=== PATIENT | female | born 1995 | race Caucasian/White ===

== ENCOUNTER 2017-09-22 08:54 | Outpatient (CLI) | payer BC ==
[~2017-09-22] VITALS: Ht 154.9 cm; Wt 70.0 kg
[2017-09-22 09:18] LABS: BASOPHILS # (AUTO) 0.01 x10^3/uL (0-0.1); BASOPHILS % (AUTO) 0 % (0-1); EOSINOPHILS # (AUTO) 0.26 x10^3/uL (0-0.4); EOSINOPHILS % (AUTO) 2 % (1-7); LYMPHOCYTES # (AUTO) 1.32 x10^3/uL (1-3.4); LYMPHOCYTES % (AUTO) 10 % (22-44); MD NO; MEAN CORPUSCULAR HEMOGLOBIN 32.5 pg (27.0-34.8); MEAN CORPUSCULAR HGB CONC 34.1 g/dL (32.4-35.8); MEAN CORPUSCULAR VOLUME 95.3 fL (80-100); MEAN PLATELET VOLUME 9.2 fL (7.4-10.4); MONOCYTES # (AUTO) 0.83 x10^3/uL (0.2-0.8); MONOCYTES % (AUTO) 6 % (2-9); NEUTROPHILS # (AUTO) 10.74 x10^3/uL (1.8-6.8); NEUTROPHILS % (AUTO) 82 % (42-75); PLATELET COUNT 157 x10^3/uL (130-400); RED CELL DISTRIBUTION WIDTH 13.6 % (9.6-15.2)
[2017-09-22 09:33] LABS: ALANINE AMINOTRANSFERASE 24 U/L (12-78); ANION GAP 8 mmol/L (5-15); CALCIUM 9.2 mg/dL (8.5-10.1); CHLORIDE 109 mmol/L (98-107); CREATININE 0.84 mg/dL (0.55-1.02)
[2017-09-22 09:35] LABS: MICROSCOPIC INDICATED
[2017-09-22 09:38] LABS: ALKALINE PHOSPHATASE 148 U/L (45-117); BILIRUBIN, DIRECT 0.1 mg/dL (0.1-0.2); BILIRUBIN,TOTAL 0.5 mg/dL (0.2-1.0); TOTAL PROTEIN 6.9 g/dL (6.4-8.2)
[2017-09-22] MEDS ORDERED: PLEASE ENTER HEIGHT AND WEIGHT MC SCH (10:00)
[2017-09-22] MEDS ORDERED: LACTATED RINGERS 1,000 ML IVBOLUS ONE (10:00)
[2017-09-22] MEDS ORDERED: ONDANSETRON 2MG/ML, 2ML IVPush PRN (10:00)
[2017-09-22] MEDS ORDERED: LACTATED RINGERS 1,000 ML IV ONE (10:00)
[2017-09-22] MEDS ORDERED: ONDANSETRON 2MG/ML, 2ML ONE (10:02)
[2017-09-22 10:33] VITALS: BP 125/78
== END 2017-09-22 13:05 | disposition home or self-care (01) ==
LOC: LDOP 08:54
PROVIDERS: ATTEND Obstetrics & Gynecology
DX: O26.893 Other specified pregnancy related conditions, third trimester (principal); R10.11 Right upper quadrant pain; Z3A.38 38 weeks gestation of pregnancy
CPT/HCPCS: 36415; 59025; 76700; 80053; 81001; 82248; 84550; 85025; 87086; 96360; 96361; 99201; J2405; J7120; G0463

== ENCOUNTER 2017-10-07 02:16 | Inpatient (IN) | payer BC ==
[~2017-10-07] VITALS: Ht 154.9 cm; Wt 73.0 kg
[2017-10-07] MEDS ORDERED: OXYTOCIN 30U/ 0.9% NaCL 500ML 500 ML IV ONE (02:32)
[2017-10-07] MEDS: D5%-LACTATED RINGERS 1,000 ML IV SCH ×2 (02:32→10:32)
[2017-10-07] MEDS ORDERED: FENTANYL/BUPIV./NS/PF 250 ML EPIDCONT SCH ×2 (02:43→04:14)
[2017-10-07 02:49] LABS: BASOPHILS # (AUTO) 0.15 x10^3/uL (0-0.1); BASOPHILS % (AUTO) 1 % (0-1); EOSINOPHILS # (AUTO) 0.13 x10^3/uL (0-0.4); EOSINOPHILS % (AUTO) 1 % (1-7); LYMPHOCYTES # (AUTO) 1.72 x10^3/uL (1-3.4); LYMPHOCYTES % (AUTO) 15 % (22-44); MD NO; MEAN CORPUSCULAR HEMOGLOBIN 33.5 pg (27.0-34.8); MEAN CORPUSCULAR VOLUME 95.8 fL (80-100); MEAN PLATELET VOLUME 10.6 fL (7.4-10.4); MONOCYTES # (AUTO) 1.23 x10^3/uL (0.2-0.8); MONOCYTES % (AUTO) 11 % (2-9); NEUTROPHILS # (AUTO) 8.52 x10^3/uL (1.8-6.8); NEUTROPHILS % (AUTO) 72 % (42-75); PLATELET COUNT 139 x10^3/uL (130-400); RED BLOOD COUNT 4.17 x10^6/uL (3.82-5.3); RED CELL DISTRIBUTION WIDTH 13.3 % (9.6-15.2)
[2017-10-07] MEDS ORDERED: NEWBORN KIT ONE (02:55)
[2017-10-07] MEDS ORDERED: OXYTOCIN 30U/ 0.9% NaCL 500ML 500 ML ONE (02:55)
[2017-10-07] MEDS ORDERED: MISOPROSTOL 200 MCG TABLET ONE (02:56)
[2017-10-07] MEDS ORDERED: LIDOCAINE/PF 1%, 30ML ONE (02:56)
[2017-10-07] MEDS ORDERED: CALCIUM CARBONATE 500 MG TAB.CHEW PO PRN ×2 (03:00→12:00)
[2017-10-07] MEDS ORDERED: ONDANSETRON 2MG/ML, 2ML IVPush PRN ×2 (03:00→04:30)
[2017-10-07] MEDS ORDERED: FENTANYL PF 100 MCG/2ML IVPush PRN (03:00)
[2017-10-07] MEDS ORDERED: TERBUTALINE 1 MG/ML, 1ML IVPush PRN (03:00)
[2017-10-07] MEDS ORDERED: FENTANYL PF 100 MCG/2ML IV PRN (03:00)
[2017-10-07] MEDS ORDERED: METOCLOPRAMIDE 5 MG/ML, 2ML IVPush PRN (03:00)
[2017-10-07 03:12] VITALS: BP 131/71
[2017-10-07] MEDS ORDERED: FENTANYL PF 100 MCG/2ML ONE (03:13)
[2017-10-07] MEDS ORDERED: FENTANYL PF 500 MCG, BUPIVACAINE/PF 0.5%, 30ML 62.5 ML in SODIUM CHLORIDE 0.9% 177.5 ML EPIDCONT SCH (03:30)
[2017-10-07] MEDS ORDERED: BUPIVACAINE 0.25% ONE (03:34)
[2017-10-07] MEDS: LACTATED RINGERS 1,000 ML IV SCH ×4 (03:45→14:26)
[2017-10-07] MEDS ORDERED: EPHEDRINE 50 MG/ML, 1ML IVPush PRN (04:30)
[2017-10-07] MEDS ORDERED: LACTATED RINGERS 1,000 ML IVBOLUS PRN (04:30)
[2017-10-07] MEDS ORDERED: DIPHENHYDRAMINE 50 MG/ML, 1ML IVPush PRN (04:30)
[2017-10-07] MEDS ORDERED: NALOXONE 0.4 MG/ML, 1ML IVPush PRN (04:30)
[2017-10-07] MEDS ORDERED: ACETAMINOPHEN 325 MG TABLET ONE (08:08)
[2017-10-07] MEDS ORDERED: AMPICILLIN 2 GM in SODIUM CHLORIDE 0.9% 100 ML IV ONE (08:30)
[2017-10-07] MEDS ORDERED: ACETAMINOPHEN 325 MG TABLET PO PRN ×4 (08:30→12:00)
[2017-10-07] MEDS ORDERED: OXYTOCIN 30U/ 0.9% NaCL 500ML 500 ML IV PRN (10:37)
[2017-10-07] MEDS ORDERED: ONDANSETRON 2MG/ML, 2ML IV PRN (12:00)
[2017-10-07] MEDS ORDERED: OXYcodone/APAP 5/325MG TABLET PO PRN ×2 (12:00)
[2017-10-07] MEDS ORDERED: MEASLES,MUMPS&RUBELLA VACC/PF 0.5 ML SQ PRN (12:00)
[2017-10-07] MEDS ORDERED: MAGNESIUM HYDROXIDE 8%, 30ML UDC PO PRN (12:00)
[2017-10-07] MEDS ORDERED: MISOPROSTOL 200 MCG TABLET PR PRN (12:00)
[2017-10-07] MEDS ORDERED: DIPH,PERTUSS(ACELL),TET VAC/PF NC IM-VACC PRN (12:00)
[2017-10-07] MEDS ORDERED: RHOGAM FROM BLOOD BANK 1 NOTE EA IM/IV ONE (12:00)
[2017-10-07] MEDS ORDERED: IBUPROFEN 600 MG TABLET ONE (12:34)
[2017-10-07] MEDS: IBUPROFEN 600 MG TABLET PO PRN ×2 (12:37→18:37)
[2017-10-07] MEDS: AMPICILLIN 2 GM in SODIUM CHLORIDE 0.9% 100 ML IV SCH ×2 (14:15→20:00)
[2017-10-07 15:15] VITALS: BP 92/69
[2017-10-07] MEDS: OXYTOCIN 30U/ 0.9% NaCL 500ML 500 ML IV SCH ×2 (15:46→21:34)
[2017-10-07 18:20] VITALS: BP 120/77
[2017-10-07 19:40] LABS: MEAN CORPUSCULAR HEMOGLOBIN 33.4 pg (27.0-34.8); MEAN CORPUSCULAR HGB CONC 34.8 g/dL (32.4-35.8); MEAN CORPUSCULAR VOLUME 96.1 fL (80-100); MEAN PLATELET VOLUME 10.1 fL (7.4-10.4); PLATELET COUNT 118 x10^3/uL (130-400); RED BLOOD COUNT 3.86 x10^6/uL (3.82-5.3); RED CELL DISTRIBUTION WIDTH 13.9 % (9.6-15.2)
[2017-10-07 19:41] LABS: MD YES
[2017-10-07 19:43] LABS: BAND#(MANUAL) 9.43 x10^3/uL; BANDS%(MANUAL) 29 % (0-7); LYMPH#(MANUAL) 0.65 x10^3/uL (1-3.4); LYMPHS% (MANUAL) 2 % (22-44); METAMYELOCYTES# (MANUAL) 0.33 x10^3/uL (0-0); METAMYELOCYTES% (MANUAL) 1 % (0-1); MONOS% (MANUAL) 4 % (2-9); SEGS% (MANUAL) 64 % (42-75)
[2017-10-07 19:48] LABS: POLYCHROMASIA 1+
[2017-10-07 19:49] LABS: <PLATELET ESTIMATE> DECREASED; LARGE PLATELETS 1+
[2017-10-07 19:51] LABS: TOXIC GRAN 1+
[2017-10-07 20:00] VITALS: BP 106/67
[2017-10-08 00:30] VITALS: BP 105/65
[2017-10-08] MEDS: IBUPROFEN 600 MG TABLET PO PRN ×4 (00:44→19:46)
[2017-10-08] MEDS: AMPICILLIN 2 GM in SODIUM CHLORIDE 0.9% 100 ML IV SCH ×4 (02:25→19:47)
[2017-10-08 05:20] LABS: MEAN CORPUSCULAR HEMOGLOBIN 33.3 pg (27.0-34.8); MEAN CORPUSCULAR HGB CONC 34.4 g/dL (32.4-35.8); MEAN CORPUSCULAR VOLUME 96.8 fL (80-100); MEAN PLATELET VOLUME 10.6 fL (7.4-10.4); PLATELET COUNT 105 x10^3/uL (130-400); RED BLOOD COUNT 3.72 x10^6/uL (3.82-5.3)
[2017-10-08 05:50] VITALS: BP 109/67
[2017-10-08 05:56] LABS: MD YES
[2017-10-08 05:58] LABS: BAND#(MANUAL) 3.57 x10^3/uL; BANDS%(MANUAL) 14 % (0-7); BASOS#(MANUAL) 0.26 x10^3/uL (0-0.1); BASOS% (MANUAL) 1 % (0-1); LYMPH#(MANUAL) 1.53 x10^3/uL (1-3.4); LYMPHS% (MANUAL) 6 % (22-44); MONOS#(MANUAL) 1.53 x10^3/uL (0.3-2.7); MONOS% (MANUAL) 6 % (2-9); SEG#(MANUAL) 18.62 x10^3/uL (1.8-6.8); SEGS% (MANUAL) 73 % (42-75)
[2017-10-08 05:59] LABS: <PLATELET ESTIMATE> DECREASED; <RBC MORPHOLOGY> NORMAL
[2017-10-08 06:00] LABS: LARGE PLATELETS 1+
[2017-10-08] MEDS: OXYTOCIN 30U/ 0.9% NaCL 500ML 500 ML IV SCH ×2 (07:08→15:30)
[2017-10-08] MEDS: PRENATAL VIT/IRON/FA 1 EACH TABLET PO SCH (07:16)
[2017-10-08] MEDS: DOCUSATE 100 MG CAPSULE PO PRN ×2 (07:16→19:46)
[2017-10-08 08:08] VITALS: BP 98/61
[2017-10-08 13:14] VITALS: BP 129/90
[2017-10-08 19:40] VITALS: BP 107/68
[2017-10-09] MEDS: AMPICILLIN 2 GM in SODIUM CHLORIDE 0.9% 100 ML IV SCH ×2 (01:55→08:41)
[2017-10-09] MEDS: IBUPROFEN 600 MG TABLET PO PRN ×2 (01:55→08:41)
[2017-10-09 02:10] VITALS: BP 105/64
[2017-10-09] MEDS: OXYTOCIN 30U/ 0.9% NaCL 500ML 500 ML IV SCH ×2 (03:34→13:34)
[2017-10-09] MEDS: PRENATAL VIT/IRON/FA 1 EACH TABLET PO SCH (08:41)
[2017-10-09] MEDS: DOCUSATE 100 MG CAPSULE PO PRN (08:41)
[2017-10-09 08:42] VITALS: BP 105/66
[2017-10-09] MEDS ORDERED: IBUP200T49 PO (13:09)
[2017-10-09] MEDS ORDERED: DOCU-131 PO (13:10)
== END 2017-10-09 14:45 | disposition home or self-care (01) | DRG 775 ==
LOC: LDOP 02:16 → LDIP 02:43 → 2NW 14:03
PROVIDERS: ADMIT Obstetrics & Gynecology; ATTEND Obstetrics & Gynecology
PROC: 0KQM0ZZ Repair Perineum Muscle, Open Approach (ICD-10-PCS; principal; 2017-10-07)
PROC: 10D07Z6 Extraction of Products of Conception, Vacuum, Via Natural or Artificial Opening (ICD-10-PCS; 2017-10-07)
PROC: 3E0R3BZ Introduction of Anesthetic Agent into Spinal Canal, Percutaneous Approach (ICD-10-PCS; 2017-10-07)
PROC: 00HU33Z Insertion of Infusion Device into Spinal Canal, Percutaneous Approach (ICD-10-PCS; 2017-10-07)
DX: O69.1XX0 Labor and delivery complicated by cord around neck, with compression, not applicable or unspecified (principal); O41.1230 Chorioamnionitis, third trimester, not applicable or unspecified; Z37.0 Single live birth; O75.81 Maternal exhaustion complicating labor and delivery; Z3A.39 39 weeks gestation of pregnancy; O70.1 Second degree perineal laceration during delivery; Z23 Encounter for immunization
CPT/HCPCS: 36415; J2790; 82803; 85025; 85460; 85461; 86850; 86900; 87070; 87075; 87081; 87205; J0290; J3010; J2590; J7120

== ENCOUNTER 2019-03-16 12:11 | Emergency (ER) | payer BC ==
[~2019-03-16] VITALS: Ht 154.9 cm; Wt 58.5 kg
[~2019-03-16 12:11] MED LIST: DOCU-131 PO; IBUP200T49 PO
--- NOTE | 2019-03-16 12:48 | NUR ---
ERP WAS IN TO SEE PT. POC RV'WD WITH HER. PT STATES HER LAST PERIOD WAS IN EARLY JANUARY, AND HER POSITIVE HOME TEST WAS 02/24/19. REPORTS FEVER OF 102 AT HOME, SOME LOWER DIFFUSE ABD PAIN AND DYSURIA.
[2019-03-16 13:09] LABS: MICROSCOPIC NOT IND
[2019-03-16 13:10] LABS: BASOPHILS # (AUTO) 0.05 x10^3/uL (0-0.1); BASOPHILS % (AUTO) 1 % (0-1); EOSINOPHILS # (AUTO) 0.11 x10^3/uL (0-0.4); EOSINOPHILS % (AUTO) 2 % (1-7); LYMPHOCYTES # (AUTO) 1.63 x10^3/uL (1-3.4); LYMPHOCYTES % (AUTO) 23 % (22-44); MD NO; MEAN CORPUSCULAR HEMOGLOBIN 31.6 pg (27.0-34.8); MEAN CORPUSCULAR HGB CONC 33.2 g/dL (32.4-35.8); MEAN CORPUSCULAR VOLUME 95.1 fL (80-100); MEAN PLATELET VOLUME 8.4 fL (7.4-10.4); MONOCYTES # (AUTO) 0.56 x10^3/uL (0.2-0.8); MONOCYTES % (AUTO) 8 % (2-9); NEUTROPHILS % (AUTO) 68 % (42-75); PLATELET COUNT 261 x10^3/uL (130-400); RED BLOOD COUNT 4.43 x10^6/uL (3.82-5.3); RED CELL DISTRIBUTION WIDTH 12.6 % (9.6-15.2)
[2019-03-16 13:10] LABS: CULTURE INDICATED? NO
[2019-03-16 13:19] LABS: ALBUMIN 3.8 g/dL (3.4-5.0); ANION GAP 6 mmol/L (5-15); CALCIUM 8.9 mg/dL (8.5-10.1); CHLORIDE 109 mmol/L (98-107); CREATININE 0.76 mg/dL (0.55-1.02)
--- NOTE | 2019-03-16 13:43 | NUR ---
PT TO US VIA [facility].
--- NOTE | 2019-03-16 13:58 | NUR ---
PT RETURNS FROM US.
[2019-03-16 14:25] VITALS: BP 102/46
--- NOTE | 2019-03-16 14:25 | NUR ---
RHOGAM GIVEN IM PER ORDERS. PT STATES SHE RECEIVED RHOGAM IN HER PREVIOUS WELL. [facility] PATIENT INFORMATION SHEET AND ADMINISTRATION RECORD/LEAFLET GIVEN TO PT AND SIGNIFICANT OTHER.
--- NOTE | 2019-03-16 15:40 | NUR ---
D/C INSTRUCTIONS, MEDS & F/U APPT RV'WD WITH PT, SHE VERBALIZES UNDERSTANDING. AMBULATED OUT OF ED WITH SIGNIFICANT OTHER WITHOUT DIFFICULTY.
== END 2019-03-16 15:50 | disposition home or self-care (01) ==
LOC: ED 14:01
DX: N93.9 Abnormal uterine and vaginal bleeding, unspecified (principal)
CPT/HCPCS: 36415; 76801; 80048; 81003; 82040; 84702; 85025; 86850; 86900; 96372; 99284; J2790